=== PATIENT | male | born 1970 | race Caucasian/White ===

== ENCOUNTER → 2020-02-03 | Outpatient (CLI) | payer BC ==
--- NOTE | 2020-02-03 13:30 | CT ---
EXAM DESCRIPTION: Abdomen/Pelvis w/Contrast CLINICAL HISTORY: RLQ PAIN COMPARISON: None. TECHNIQUE: CT of the abdomen and pelvis was performed following intravenous contrast and oral contrast. Multiple axial images and multiplanar reconstructions were generated. This exam was performed according to our departmental dose-optimization program, which includes automated exposure control, adjustment of the mA and/or kV according to patient size and/or use of iterative reconstruction technique. FINDINGS: Lung bases: The visualized lung bases are clear. Solid organs: Hepatic steatosis. Cholelithiasis. The spleen, pancreas, kidneys, and adrenal glands are unremarkable. Gastrointestinal: The appendix is dilated measuring up to 11 mm in diameter. There is appendiceal wall thickening and surrounding mesenteric inflammation. Mild free fluid in the right paracolic gutter. Mild inflammation and wall thickening of the cecum which is likely secondary to acute appendicitis. The stomach and small intestine are unremarkable. Rare colonic diverticulosis without CT evidence for diverticulitis. No intraperitoneal free air. Vascular: Moderate atherosclerotic plaque in the abdominal aorta and its major branches. Lymph nodes: No pathologically enlarged lymph nodes are present by CT size criteria. Musculoskeletal and soft tissues: No destructive osseous lesions are present. Multilevel lumbar disc degeneration. Urinary bladder and pelvic organs: The urinary bladder is normal. The prostate is normal in size. IMPRESSION: 1. Acute appendicitis. General surgical consultation recommended. 2. Mild secondary inflammation of the cecum. 3. Cholelithiasis. 4. Other findings as above. Findings called to Dr. Eduardo Handy on 02/03/2020 at 1325 hours. Electronically signed by: Matt Tubbs MD 02/03/2020 1:27 PM CDT
== END ==
LOC: CT 12:12
PROVIDERS: ATTEND General Practice
DX: K35.80 Unspecified acute appendicitis (principal); K80.20 Calculus of gallbladder without cholecystitis without obstruction; K63.89 Other specified diseases of intestine; K76.0 Fatty (change of) liver, not elsewhere classified; I70.0 Atherosclerosis of aorta

== ENCOUNTER 2020-02-04 07:30 | Day surgery (SDC) | payer BC ==
[~2020-02-04 07:30] MED LIST: DEXAMETHASONE INJ 10 MG/ML VIAL ONE; LACTATED RINGERS 1,000 ML ONE; LIDOCAINE 1% 10 ML VIAL INJ ONE; MAGNESIUM SULFATE INJ 1 GM/2 ML VIAL ONE; PROPOFOL 200 MG/20 ML VIAL IV ONE; SODIUM CHL 0.9% 100ML MINI-BAG 100 ML IVPB ONE; ceFAZolin SODIUM 1 GM VIAL ONE
[2020-02-04] MEDS ORDERED: BUPIVACAINE 0.5% W/EPI 30 ML VIAL INJ ONE ×3 (08:03→08:53)
[2020-02-04] MEDS ORDERED: SUGAMMADEX SODIUM 200 MG/2 ML VIAL IV ONE (08:10)
[2020-02-04] MEDS ORDERED: FAMOTIDINE 10 MG/ML ML IV ONE (08:11)
[2020-02-04] MEDS ORDERED: fentaNYL CITRATE INJ 50 MCG/ML AMP ONE ×2 (08:11→08:12)
[2020-02-04] MEDS ORDERED: MIDAZOLAM INJ 5 MG/5 ML VIAL ONE (08:11)
[2020-02-04] MEDS ORDERED: ROCURONIUM BROMIDE 10 MG/ML VIAL ONE (08:11)
--- NOTE | 2020-02-04 09:52 | OP ---
DATE OF PROCEDURE: 02/04/20 PREOPERATIVE DIAGNOSIS: 1. Acute appendicitis. POSTOPERATIVE DIAGNOSIS: 1. Acute appendicitis. PROCEDURE: 1. Laparoscopic appendectomy. SURGEON: Morris Shoemaker MD ANESTHESIA: General and local. FINDINGS: Acute suppurative nonperforated appendix, high riding on the right. COMPLICATIONS: None. ESTIMATED BLOOD LOSS: Minimal. SPECIMEN: Appendix. PLAN: Discharge. INDICATION: This is a 49-year-old man who yesterday was diagnosed with acute appendicitis based on CT scan. It was later in the day and he had eaten, so analyzing both the CT scan and the patient's physical examination and vital signs, etc., and since he was not NPO, there was concern naturally, so the best option at this point was thought to proceed first thing this morning. We got him some antibiotics yesterday. PROCEDURE: The patient was brought to the operative suite in supine position. General anaesthesia was induced. He was prepped and draped in sterile fashion. 0.5% Marcaine with epinephrine was used at all incision sites. While maintaining upward traction, a ghanshyam was made in the base of the umbilicus. A Veress needle was introduced. There was free flow of fluid into the peritoneal cavity which was insufflated to an appropriate level with CO2 gas. A 5 mm trocar was placed followed by the camera. There was no evidence of bleeding or bowel injury. The patient was positioned and the suprapubic and right lower quadrant ports were placed under direct visualization. They were modified superiorly due to the high-riding appendix. At this point, we began dissecting. There was some inflammation of the lateral wall near the terminal ileum. This was dissected free and rotated medially. It was just a loop of bowel and then the terminal ileum as well had to be rotated a little bit. We then identified the tip of the appendix, dissected it off inflammation from the lateral wall and got down and identified a normal appearing base. The base was normal for about 3 cm. I was able to get a blue staple load across the base without difficulty and then on elevation, the mesoappendix was easily taken with a salvador load. The appendix was placed in the EndoCatch bag and removed. At this point, air was irrigated, aspirated. There was no ongoing oozing. The staple lines were intact. There was no bleeding or bile leakage. There was inflammation in the midportion of the distal or mid ileum and the terminal ileum, but no evidence of abscess. At this point, everything looked good. The suprapubic fascia was then closed with #0 Vicryl using the suture passers. The area was airtight and non- bleeding. The remaining trocars were removed. The abdomen had been desufflated. The wounds were closed with Monocryl and dressing applied. He was awakened and taken to Recovery to be discharged. #[id number] cc: [facility]
[2020-02-04] MEDS ORDERED: HYDROCOD/APAP 5/325 (ER DISP) #3 TAB PO ONE (10:20)
[2020-02-04] MEDS ORDERED: HYDROcodone 5MG/APAP 325MG 1 EA TAB PO ONE (10:20)
[2020-02-04] MEDS ORDERED: HYDROcodone 5MG/APAP 325MG 1 EA TAB ONE (10:24)
[2020-02-04] MEDS ORDERED: ONDANSETRON INJ 4 MG/2 ML VIAL ONE (10:57)
[2020-02-04] MEDS ORDERED: ONDANSETRON INJ 4 MG/2 ML VIAL IV ONE (11:00)
[2020-02-04 11:24] VITALS: BP 102/67; TEMP 98.3; O2SAT 95
== END 2020-02-04 11:15 | disposition home or self-care (01) ==
LOC: AMB 07:30
PROVIDERS: ATTEND Surgery
DX: K35.80 Unspecified acute appendicitis (principal); I10 Essential (primary) hypertension; I25.10 Atherosclerotic heart disease of native coronary artery without angina pectoris; I25.2 Old myocardial infarction; G47.30 Sleep apnea, unspecified; Z79.899 Other long term (current) drug therapy; Z79.82 Long term (current) use of aspirin; Z99.89 Dependence on other enabling machines and devices
CPT/HCPCS: 00840; 44970; J0690; J1100; J2250; J2405; J3010; J3475; J3490; J7050; J7120

== ENCOUNTER 2020-05-15 05:18 | Day surgery (SDC) | payer BC ==
[2020-05-15] MEDS ORDERED: LIDOCAINE 1% 10 ML VIAL INJ ONE (05:19)
[2020-05-15] MEDS ORDERED: PROPOFOL 200 MG/20 ML VIAL IV ONE (05:19)
[2020-05-15] MEDS ORDERED: DEXAMETHASONE INJ 10 MG/ML VIAL IV ONE (05:19)
[2020-05-15] MEDS ORDERED: PHENYLEPHRINE INJ 1ML 10 MG/ML VIAL IV ONE (05:19)
[2020-05-15] MEDS ORDERED: MAGNESIUM SULFATE INJ 1 GM/2 ML VIAL IVPB ONE (05:19)
[2020-05-15] MEDS ORDERED: SODIUM CHLORIDE 0.9% 50 ML VIAL INJ ONE (05:19)
[2020-05-15] MEDS ORDERED: LACTATED RINGERS 1,000 ML ONE (06:37)
[2020-05-15] MEDS ORDERED: BUPIVACAINE 0.5% W/EPI 30 ML VIAL INJ ONE (11:36)
[2020-05-15] MEDS ORDERED: MIDAZOLAM INJ 5 MG/5 ML VIAL ONE (12:01)
[2020-05-15] MEDS ORDERED: fentaNYL CITRATE INJ 50 MCG/ML 2 ML AMP ONE (12:01)
[2020-05-15] MEDS ORDERED: DEXMEDETOMIDINE HCL 200 MCG/2 ML INJ IV ONE (12:01)
[2020-05-15] MEDS ORDERED: FAMOTIDINE INJ 10 MG/ML VIAL IV ONE (12:02)
[2020-05-15] MEDS ORDERED: LACTATED RINGERS 400 ML IVS ONE (12:57)
--- NOTE | 2020-05-15 13:05 | OP ---
DATE OF PROCEDURE: 05/15/20 PREOPERATIVE DIAGNOSIS: 1. Internal and external hemorrhoids. POSTOPERATIVE DIAGNOSIS: 1. Internal and external hemorrhoids. PROCEDURE: 1. Complete excision of internal and external hemorrhoids x1. 2. Hemorrhoid banding x2. 3. Bilateral pudendal nerve blocks for postoperative pain control. SURGEON: Morris Shoemaker MD ANESTHESIA: General. FINDINGS: He did have the known large internal and external complex on the left lateral position and additional external in the left anterior and prominent internal hemorrhoid on the right lateral and right posterior. PROCEDURE: In lateral position, general anesthesia was induced. He was prepped and draped in sterile fashion. 4 cc of 0.5% Marcaine with epinephrine was used to perform bilateral pudendal nerve blocks for postoperative pain control. We also put pain medicine in the area. He tolerated the procedure well. The speculum was inserted. We identified the internal and external hemorrhoid complex which was visible on external exam. In the left lateral position, it was associated with a left posterior hemorrhoid, so [id number] was placed near the base of the internal hemorrhoid. We then cut in elliptical fashion removing the overlying skin and hemorrhoid tissue also undermining a bit externally to get the posterior external hemorrhoids. Once this was done, a little bit of cautery as used. We then ligatured the base and cut off the hemorrhoid. It was then closed in a running locking fashion. A small hematoma formed proximal to this, so a [id number] stitch was placed and that controlled it. There was no bleeding at this time. More local anesthesia was placed. We identified two internal hemorrhoids in the right lateral and right posterior position. Two bands were placed proximal to the dentate line. He tolerated the procedure. More local was placed. He was awakened and taken to Recovery to be discharged. #[id number] cc: Eduardo Handy MD [facility]
[2020-05-15] MEDS ORDERED: HYDROcodone 5MG/APAP 325MG 1 EA TAB ONE (13:43)
[2020-05-15 14:28] VITALS: BP 134/77; TEMP 97; O2SAT 97
== END 2020-05-15 14:20 | disposition home or self-care (01) ==
LOC: AMB 05:18
PROVIDERS: ATTEND Surgery
DX: K64.4 Residual hemorrhoidal skin tags (principal); K64.8 Other hemorrhoids; G89.18 Other acute postprocedural pain; I10 Essential (primary) hypertension; E78.00 Pure hypercholesterolemia, unspecified; I25.2 Old myocardial infarction; I25.10 Atherosclerotic heart disease of native coronary artery without angina pectoris; G47.30 Sleep apnea, unspecified; E66.9 Obesity, unspecified; Z68.37 Body mass index [BMI] 37.0-37.9, adult; Z79.82 Long term (current) use of aspirin; Z79.899 Other long term (current) drug therapy
CPT/HCPCS: 00902; 36415; 46260; 64450; 80048; 85025; A4216; J1100; J2250; J3010; J3475; J3490; J7120